=== PATIENT | female | born 1980 | race Caucasian/White ===

== ENCOUNTER 2017-10-03 07:45 | Day surgery (SDC) | payer OTHER ==
[2017-09-24 16:28] VITALS: BMI 24.7
[2017-10-03] MEDS ORDERED: PROPOFOL 20 ML ONE (07:56)
[2017-10-03] MEDS ORDERED: MIDAZOLAM HCL 2 MG/2 ML SINGLE DOSE VIAL ONE (07:56)
[2017-10-03] MEDS ORDERED: DEXAMETHASONE SOD PHOSPHATE 4 MG/1 ML VIAL ONE (08:36)
[2017-10-03] MEDS ORDERED: ONDANSETRON 4 MG/2 ML VIAL ONE (08:36)
[2017-10-03] MEDS ORDERED: ceFAZolin SODIUM 1 GM VIAL ONE (08:39)
[2017-10-03] MEDS ORDERED: LIDOCAINE HCL 1%, 10 MG/ML (50 mL VIAL) IJ ONE (08:40)
[2017-10-03 09:18] VITALS: TEMP 98.2
[2017-10-03 10:29] VITALS: BP 100/68; PULSE 70
--- NOTE | 2017-10-03 12:18 | OP ---
DATE OF OPERATION: 10/03/2017 PREOPERATIVE DIAGNOSIS: Right ring finger mass. POSTOPERATIVE DIAGNOSIS: Right ring finger mass. OPERATIVE PROCEDURE: Right ring finger mass excision. SURGEON: Saad Martin MD ANESTHESIA: Local with sedation. COMPLICATIONS: None. ESTIMATED BLOOD LOSS: Minimal. INDICATIONS FOR PROCEDURE: The patient is a 37-year-old female with the above finding, indicated for operative treatment. Risks, benefits, alternatives were discussed with patient at length. I did inform her that we would likely need to remove part of her nail plate and that she may have some deformity in the area, as this has already been attempted to be resected twice by other physicians and I would need to remove deeper tissue in order to accomplish complete excision. PROCEDURE: After proper identification of patient and correct operative site, patient brought to operating room, placed supine on table, prominences well padded. Sedation was given by the anesthesiologist. Local anesthesia was given, 2% lidocaine. Right upper extremity was prepped and draped in usual sterile fashion. A well-padded tourniquet was placed over sterile prep. Esmarch bandage used to exsanguinate right upper extremity. Tourniquet was inflated to 250 mmHg. The patient's mass was then visualized closely under loupe magnification and found to be a significant hyperkeratotic mass measuring approximately 5 mm x 3 mm right at the paronychial fold. Complete excision would require partial removal of the nail plate, which was performed on the lateral aspect. The mass was then ellipsed out in whole and the mass was found to emanate all the way down to the distal phalanx. The wound was then loosely reapproximated with 5-0 fast-absorbing plain gut sutures. Sterile dressings were applied. Patient was reversed from anesthesia and brought to room in stable condition. She tolerated procedure well. SAAD MARTIN M.D. [id number]
--- NOTE | 2017-10-09 16:33 | PATH ---
Surgical Pathology Report Patient Name: MAAME PIPER [facility] [place]. Rec. #: [id number] /Age/Gender: 1980 (Age: 37) / F Account: [id number] Location: [facility] AMBULATORY Taken: 10/03/2017 Received: 10/03/2017 Reported: 10/09/2017 Physicians: Saad Vásquez M.D. Specimen(s) Received RIGHT RING FINGER MASS Clinical History Right ring finger mass Final Diagnosis RING FINGER, RIGHT, MASS, SHAVE: SUPERFICIAL FRAGMENTS OF HYPERKERATOTIC SKIN. Electronically Signed Selene Olivier M.D. Gross Description Received in formalin labeled "right ring finger mass," is a 0.5 x 0.3 cm parnell, irregular skin shave. The specimen is bisected and entirely submitted in one cassette. /10/04/2017 [facility]10[facility]04/2017
== END 2017-10-03 10:34 | disposition home or self-care (01) ==
LOC: FASU 07:45
PROVIDERS: ATTEND Orthopaedic Surgery Hand Surgery
PROC: 0JBJ0ZX Excision of Right Hand Subcutaneous Tissue and Fascia, Open Approach, Diagnostic (ICD-10-PCS; principal; 2017-10-03 08:30)
DX: D21.11 Benign neoplasm of connective and other soft tissue of right upper limb, including shoulder (principal)
CPT/HCPCS: 84703